=== PATIENT | male | born 1930 | race Caucasian/White ===

== ENCOUNTER 2017-06-20 12:20 | Day surgery (SDC) | payer OTHER, BC ==
[~2017-06-20] VITALS: Ht 170.2 cm; Wt 59.0 kg
[~2017-06-20 12:20] MED LIST: LISINOPRIL10 MG PO; NORVASC10 MG PO; PRILOSEC20 MG PO; TOPROL XL25 MG PO; XARELTO15 MG PO; ZYLOPRIM300 MG PO
== END 2017-06-20 15:20 | disposition home or self-care (01) ==
LOC: CATH 12:20
DX: Z45.010 Encounter for checking and testing of cardiac pacemaker pulse generator [battery] (principal); I44.2 Atrioventricular block, complete; I48.4 Atypical atrial flutter; I47.2 Ventricular tachycardia; E78.5 Hyperlipidemia, unspecified; K21.9 Gastro-esophageal reflux disease without esophagitis; I10 Essential (primary) hypertension; Z79.01 Long term (current) use of anticoagulants; Z87.891 Personal history of nicotine dependence
CPT/HCPCS: C1785; J0690; J1200; J2250; J3010; S0020